=== PATIENT | female | born 1985 | race African-American/Black ===

== ENCOUNTER 2017-02-03 13:53 | Emergency (ER) | payer MEDICAID, OTHER ==
[~2017-02-03] VITALS: Ht 170.2 cm; Wt 81.0 kg
[2017-02-03 14:04] VITALS: BP 135/73
== END 2017-02-03 14:43 | disposition home or self-care (01) ==
LOC: ER 14:23
DX: S90.561A Insect bite (nonvenomous), right ankle, initial encounter (principal); F17.200 Nicotine dependence, unspecified, uncomplicated; W57.XXXA Bitten or stung by nonvenomous insect and other nonvenomous arthropods, initial encounter; Y93.89 Activity, other specified; Y92.89 Other specified places as the place of occurrence of the external cause; Y99.8 Other external cause status
CPT/HCPCS: 99282